=== PATIENT | female | born 2000 | race Two or more races ===

== ENCOUNTER 2020-05-26 11:22 | Emergency (ER) | payer MEDICAID ==
[~2020-05-26] VITALS: Ht 154.9 cm; Wt 57.2 kg
[2020-05-26 11:54] VITALS: BP 128/98
[2020-05-26] MEDS ORDERED: ONDANSETRON HCL 4 MG/2 ML VIAL IV ONE (12:15)
[2020-05-26] MEDS ORDERED: SODIUM CHLORIDE 0.9% 1,000 ML IV ONE (12:15)
[2020-05-26 12:48] LABS: Urine Amorphous Crystal MOD /hpf (None Seen); Urine Bacteria MOD /hpf (None Seen); Urine Blood Negative /uL (Negative); Urine Mucus FEW (None Seen); Urine Specific Gravity 1.015 (1.001-1.035); Urine WBC 2 /hpf (0 - 5)
[2020-05-26 12:59] LABS: Basophils # (auto) 0 10 ^3/uL (0-0.2); Basophils % (auto) 0.3 % (0.0-2.0); Eosinophils # (auto) 0 10 ^3/uL (0-0.8); Eosinophils % (auto) 0.4 % (0.0-7.0); Hematocrit 34.2 % (36.0-46.0); Hemoglobin 11.9 g/dL (12.2-16.2); Lymphocytes # (auto) 1.3 10 ^3/uL (0.4-5.4); Lymphocytes % (auto) 14.6 % (10.0-50.0); Mean Corpuscular Hemoglobin 32.2 pg (28.0-32.0); Mean Corpuscular Hgb Conc. 34.9 g/dL (32.0-36.0); Mean Corpuscular Volume 92.1 fL (80.0-100.0); Monocytes # (auto) 0.6 10 ^3/uL (0-1.3); Monocytes % (auto) 6.4 % (0.0-12.0); Neutrophils # (auto) 6.8 10 ^3/uL (1.6-8.6); Neutrophils % (auto) 78.3 % (37.0-80.0); Platelet Count (auto) 251 10^3/uL (140-450); Red Blood Cells 3.71 10^6/uL (4.0-5.20); Red Cell Distribution Width 14.6 % (11.8-14.3); White Blood Cell 8.7 10^3/uL (4.4-10.8)
[2020-05-26 13:03] LABS: BUN/Creatinine Ratio 15.8; Calcium 9.1 mg/dL (8.5-10.1); Potassium 3.5 mmol/L (3.5-5.1)
== END 2020-05-26 15:33 | disposition home or self-care (01) ==
LOC: ER 11:22
DX: O21.8 Other vomiting complicating pregnancy (principal); Z3A.09 9 weeks gestation of pregnancy
CPT/HCPCS: 36415; 76801; 80048; 81001; 84702; 85025; 96360; 99284; J7030

== ENCOUNTER 2020-10-27 17:25 | Observation (INO) | payer MEDICAID ==
[~2020-10-27] VITALS: Ht 154.9 cm; Wt 66.7 kg
[2020-10-27] MEDS: TERBUTALINE SULFATE 1 MG/ML 1ML VIAL SC SCH ×2 (19:28→20:34)
[2020-10-28] MEDS ORDERED: PREN-96 PO (16:47)
== END 2020-10-27 21:14 | disposition home or self-care (01) ==
LOC: LDRP 17:25
PROVIDERS: ADMIT Obstetrics & Gynecology; ATTEND Obstetrics & Gynecology
DX: O21.2 Late vomiting of pregnancy (principal); O26.893 Other specified pregnancy related conditions, third trimester; R42 Dizziness and giddiness; H53.8 Other visual disturbances; Z3A.31 31 weeks gestation of pregnancy
CPT/HCPCS: 59025; 76815; 81002; 94760; 96372; G0378; J3105

== ENCOUNTER 2020-10-28 16:25 | Observation (INO) | payer MEDICAID ==
[~2020-10-28] VITALS: Ht 157.5 cm; Wt 59.0 kg
[2020-10-28] MEDS ORDERED: PREN-96 PO (16:47)
[2020-10-28] MEDS ORDERED: TERBUTALINE SULFATE 1 MG/ML 1ML VIAL SC SCH (17:00)
[2020-10-28] MEDS ORDERED: LACTATED RINGER'S 1,000 ML IV ONE (17:00)
[2020-10-28] MEDS ORDERED: TERBUTALINE SULFATE 1 MG/ML 1ML VIAL SC ONE (17:07)
[2020-10-28] MEDS ORDERED: NIFEdipine 10 MG CAP PO ONE (17:50)
== END 2020-10-28 18:40 | disposition home or self-care (01) ==
LOC: LDRP 16:25
PROVIDERS: ADMIT Specialist; ATTEND Specialist
DX: O60.03 Preterm labor without delivery, third trimester (principal); O62.9 Abnormality of forces of labor, unspecified; Z3A.31 31 weeks gestation of pregnancy
CPT/HCPCS: 59025; 81002; 96360; 96372; G0378; J3105

== ENCOUNTER 2020-12-08 15:10 | Observation (INO) | payer MEDICAID ==
[~2020-12-08 15:10] MED LIST: PREN-96 PO
== END 2020-12-08 16:20 | disposition home or self-care (01) ==
LOC: LDRP 15:10
PROVIDERS: ADMIT Obstetrics & Gynecology; ATTEND Obstetrics & Gynecology
DX: O62.9 Abnormality of forces of labor, unspecified (principal); Z3A.37 37 weeks gestation of pregnancy
CPT/HCPCS: 59025; 81002; 94760; G0378; G0379

== ENCOUNTER 2020-12-21 13:33 | Observation (INO) | payer MEDICAID ==
[~2020-12-21] VITALS: Ht 154.9 cm; Wt 71.7 kg
== END 2020-12-21 14:43 | disposition home or self-care (01) ==
LOC: LDRP 13:33
PROVIDERS: ADMIT Obstetrics & Gynecology; ATTEND Obstetrics & Gynecology
DX: O62.9 Abnormality of forces of labor, unspecified (principal); Z3A.39 39 weeks gestation of pregnancy
CPT/HCPCS: 59025; 81002; G0378

== ENCOUNTER 2020-12-24 09:47 | Observation (INO) | payer MEDICAID | END 2020-12-24 12:24 | disposition home or self-care (01) | LOC: LDRP 09:47 | PROVIDERS: ADMIT Obstetrics & Gynecology; ATTEND Obstetrics & Gynecology | DX: O48.0 Post-term pregnancy (principal); O26.893 Other specified pregnancy related conditions, third trimester; N89.8 Other specified noninflammatory disorders of vagina; Z3A.40 40 weeks gestation of pregnancy | CPT/HCPCS: 59025; 76818; 81002; 84112; G0378; G0379; Q0114 ==

== ENCOUNTER 2020-12-26 10:32 | Observation (INO) | payer MEDICAID | END 2020-12-26 16:28 | disposition home or self-care (01) | LOC: LDRP 14:35 | PROVIDERS: ADMIT Obstetrics & Gynecology Obstetrics; ATTEND Obstetrics & Gynecology Obstetrics | DX: O48.0 Post-term pregnancy (principal); O62.9 Abnormality of forces of labor, unspecified; Z3A.40 40 weeks gestation of pregnancy | CPT/HCPCS: 59025; 76818; 81002; 94760; G0378 ==

== ENCOUNTER 2020-12-28 14:57 | Observation (INO) | payer MEDICAID | END 2020-12-28 16:59 | disposition home or self-care (01) | LOC: LDRP 14:57 | PROVIDERS: ADMIT Obstetrics & Gynecology; ATTEND Obstetrics & Gynecology | DX: O48.0 Post-term pregnancy (principal); Z3A.40 40 weeks gestation of pregnancy | CPT/HCPCS: 59025; 76818; 81002; 94760; G0378 ==

== ENCOUNTER 2020-12-30 09:06 | Inpatient (IN) | payer MEDICAID ==
[~2020-12-30] VITALS: Ht 154.9 cm; Wt 72.6 kg
[2020-12-30] MEDS ORDERED: WITCH HAZEL-GLYCERIN PAD TOP PRN (09:45)
[2020-12-30] MEDS ORDERED: PHISODERM TOP SOLN 240ML BTL TOP PRN (09:45)
[2020-12-30] MEDS ORDERED: LACT. RINGERS/OXYTOCIN 20UNITS 500 ML IV ONE ×2 (09:45→10:15)
[2020-12-30] MEDS ORDERED: BUTORPHANOL TARTRATE 2 MG/1 ML VIAL IV PRN (09:45)
[2020-12-30] MEDS ORDERED: DERMOPLAST 60ML BOTTLE TOP PRN (09:45)
[2020-12-30] MEDS ORDERED: PROMETHAZINE HCL 25 MG/ML 1ML IV PRN (09:45)
[2020-12-30] MEDS ORDERED: LIDOCAINE 2%HCL (LOCAL ANESTH.) INJ 20ML MDV IJ PRN (09:45)
[2020-12-30] MEDS: LACTATED RINGER'S 1,000 ML IV SCH ×2 (10:02→16:21)
[2020-12-30 10:03] LABS: Urine Bacteria FEW /hpf (None Seen); Urine Blood Negative /uL (Negative); Urine Specific Gravity 1.018 (1.001-1.035); Urine WBC 1 /hpf (0 - 5)
[2020-12-30 10:07] LABS: Basophils # (auto) 0 10 ^3/uL (0-0.2); Basophils % (auto) 0.7 % (0.0-2.0); Eosinophils # (auto) 0 10 ^3/uL (0-0.8); Eosinophils % (auto) 0.5 % (0.0-7.0); Hematocrit 30.4 % (36.0-46.0); Hemoglobin 10.4 g/dL (12.2-16.2); Lymphocytes # (auto) 1.9 10 ^3/uL (0.4-5.4); Lymphocytes % (auto) 28.3 % (10.0-50.0); Mean Corpuscular Hemoglobin 30.8 pg (28.0-32.0); Mean Corpuscular Hgb Conc. 34.2 g/dL (32.0-36.0); Mean Corpuscular Volume 90.1 fL (80.0-100.0); Monocytes # (auto) 0.3 10 ^3/uL (0-1.3); Monocytes % (auto) 5.2 % (0.0-12.0); Neutrophils # (auto) 4.3 10 ^3/uL (1.6-8.6); Neutrophils % (auto) 65.3 % (37.0-80.0); Red Blood Cells 3.37 10^6/uL (4.0-5.20); Red Cell Distribution Width 13.6 % (11.8-14.3); White Blood Cell 6.6 10^3/uL (4.4-10.8)
[2020-12-30 10:20] LABS: INR 0.94 (0.9-1.15); Partial Thromboplastin Time 25.4 sec (23.6-33.0)
[2020-12-30 10:21] LABS: Albumin 2.6 g/dL (3.4-5.0); Calcium 8.5 mg/dL (8.5-10.1); Potassium 3.5 mmol/L (3.5-5.1)
[2020-12-30 10:23] LABS: Amphetamine Screen, Urine NEGATIVE (NEGATIVE); Barbiturate Scree,Urine NEGATIVE (NEGATIVE); Benzodiazephine Screen, Urine NEGATIVE (NEGATIVE); Cannabinoid Screen, Urine NEGATIVE (NEGATIVE); Cocaine Screen, Urine NEGATIVE (NEGATIVE); Opiate Scree,Urine NEGATIVE (NEGATIVE); Phencyclidine Screen, Urine NEGATIVE (NEGATIVE)
[2020-12-30 10:24] LABS: BUN/Creatinine Ratio 13.8; Bilirubin, Total 0.2 mg/dL (0.2-1.0); Total Protein 6.7 g/dL (6.4-8.2); Uric Acid 6.5 mg/dL (2.6-6.0)
[2020-12-30] MEDS: miSOPROStol 50 MCG per PRE-CUT 1/2 TAB PO PRN ×2 (10:29→14:37)
[2020-12-30] MEDS: BUTORPHANOL TARTRATE 2 MG/1 ML VIAL IV PRN (22:43)
[2020-12-31] MEDS: BUTORPHANOL TARTRATE 2 MG/1 ML VIAL IV PRN (02:43)
[2020-12-31] MEDS ORDERED: BUTORPHANOL TARTRATE 2 MG/1 ML VIAL IV PRN ×2 (05:30)
[2020-12-31 06:06] LABS: RPR Non Reactive (Non Reactive)
[2020-12-31] MEDS: LACTATED RINGER'S 1,000 ML IV SCH ×2 (08:06→16:53)
[2020-12-31] MEDS ORDERED: ONDANSETRON HCL 4 MG/2 ML VIAL IV PRN (10:15)
[2020-12-31] MEDS ORDERED: ACETAMINOPHEN 325 MG TAB PO PRN (10:15)
[2020-12-31 11:30] VITALS: BP 122/77
[2020-12-31 15:13] VITALS: BP 122/67
[2020-12-31 19:00] VITALS: BP 127/84
[2020-12-31] MEDS: DOCUSATE SOD 100 MG CAP PO SCH (21:48)
[2020-12-31 23:00] VITALS: BP 111/64
[2021-01-01 03:00] VITALS: BP 110/62
[2021-01-01 06:54] VITALS: BP 102/59
[2021-01-01] MEDS ORDERED: DOCUSATE CALCIUM 240 MG CAP PO SCH (10:00)
[2021-01-01 11:30] VITALS: BP 116/76
[2021-01-01] MEDS: DOCUSATE SOD 100 MG CAP PO SCH ×2 (12:06→21:41)
[2021-01-01] MEDS: IBUPROFEN 600 MG TAB PO PRN ×2 (12:06→22:31)
[2021-01-01 15:30] VITALS: BP 112/61
[2021-01-01] MEDS ORDERED: MEASLES, MUMPS & RUBELLA VAC(MMRII) 0.5ML SC ONE (17:45)
[2021-01-01] MEDS ORDERED: TETANUS-DIPTH-ACEL PERTUSSIS 0.5ML SYR Tdap IM ONE (17:45)
[2021-01-01 19:00] VITALS: BP 123/77
[2021-01-01 22:47] VITALS: BP 126/87
[2021-01-02 03:00] VITALS: BP 98/57
[2021-01-02 06:23] VITALS: BP 110/66
[2021-01-02 06:36] VITALS: BP 110/66
[2021-01-02 07:09] VITALS: BP 110/66
== END 2021-01-02 08:34 | disposition home or self-care (01) | DRG 560 ==
LOC: LDRP 09:06 → OBSVTOIN 09:06
PROVIDERS: ADMIT Obstetrics & Gynecology; ATTEND Obstetrics & Gynecology
PROC: 3E0P7VZ Introduction of Hormone into Female Reproductive, Via Natural or Artificial Opening (ICD-10-PCS; 2020-12-30)
PROC: 3E0DXGC Introduction of Other Therapeutic Substance into Mouth and Pharynx, External Approach (ICD-10-PCS; 2020-12-30)
PROC: 10E0XZZ Delivery of Products of Conception, External Approach (ICD-10-PCS; principal; 2020-12-31)
PROC: 0KQM0ZZ Repair Perineum Muscle, Open Approach (ICD-10-PCS; 2020-12-31)
DX: O48.0 Post-term pregnancy (principal); Z37.0 Single live birth; O70.1 Second degree perineal laceration during delivery; Z3A.41 41 weeks gestation of pregnancy; Z20.822 Contact with and (suspected) exposure to COVID-19
CPT/HCPCS: 36415; 59025; 59409; 80053; 80307; 81001; 81002; 84550; 85025; 85610; 85730; 86592; 86850; 86900; 86901; 87426; 90715; 94760; 96360; 96361; 96372; 96374; 96375; G0378; J2590

== ENCOUNTER 2021-11-05 20:35 | Emergency (ER) | payer MEDICAID, OTHER ==
[~2021-11-05] VITALS: Ht 154.9 cm; Wt 63.0 kg
[2021-11-05 22:04] LABS: Urine Bacteria NONE SEEN /hpf (None Seen); Urine Blood Negative /uL (Negative); Urine Mucus FEW (None Seen); Urine Specific Gravity 1.029 (1.001-1.035); Urine WBC 2 /hpf (0 - 5)
[2021-11-06 00:21] VITALS: BP 117/62
== END 2021-11-06 00:26 | disposition home or self-care (01) ==
LOC: ER 20:35
DX: O26.891 Other specified pregnancy related conditions, first trimester (principal); R10.32 Left lower quadrant pain; Z3A.01 Less than 8 weeks gestation of pregnancy
CPT/HCPCS: 36415; 76801; 81001; 84702